=== PATIENT | female | born 1985 | race Native Hawaiian/Other Pacific Islander ===

== ENCOUNTER 2016-05-05 11:58 | Emergency (ER) | payer SELFPAY ==
[~2016-05-05] VITALS: Ht 152.4 cm; Wt 73.0 kg
[~2016-05-05 11:58] MED LIST: TAB-TAB PO
[2016-05-05 12:08] VITALS: BP 107/68; PULSE 72; RESP 16; TEMP 98.7; O2SAT 97
[2016-05-05 12:25] VITALS: RESP 16; O2SAT 99
[2016-05-05] MEDS ORDERED: FAMOTIDINE 20 MG/2 ML VIAL IV PUSH ONE (12:30)
[2016-05-05] MEDS ORDERED: ALUMINUM/MAGNESIUM/SIMETH 30 ML CUP PO ONE (12:30)
[2016-05-05] MEDS ORDERED: ONDANSETRON HCL 4 MG/2 ML VIAL IVP ONE (12:30)
[2016-05-05] MEDS ORDERED: SODIUM CHLORIDE 0.9% FLUSH 5 ML FLUSH IVF PRN (12:30)
[2016-05-05] MEDS ORDERED: LIDOCAINE VISCOUS 2% SOLN 15 ML UDC PO ONE (12:30)
--- NOTE | 2016-05-05 12:33 | PD ---
HPI Chief Complaint: Abdominal Pain Time Seen by Provider: 12:27 Travel History International Travel<30 days: No Contact w/Intl Traveler<30days: No Traveled to known affect area: No History of Present Illness HPI Patient presents for complaints of left upper quadrant abdominal pain for 3 days. Reports some nausea without vomiting. Denies any acid brash. States she was here 3 weeks ago with similar symptoms but I'm unable to find his records. States that it mildly improves with a bowel movement. Denies heartburn. Eating and drinking normally. Reports normal urination and bowels. Denies any chest pain shortness of breath. Denies excessive alcohol intake. PFSH Past Medical History Diminished Hearing: No Influenza Vaccination: Yes ?: Not LMP: 05/04/2016 : 2 Para: 2 Past Surgical History Surgical History: No Previous Surgery Social History Alcohol Use: No Tobacco Use: No Substance Use: No Allergies-Medications (Allergen,Severity, Reaction): Coded Allergies: No Known Allergies (Unverified , 05/05/16) Reported Meds & Prescriptions Reported Meds & Active Scripts Active Zantac (Ranitidine HCl) 150 Mg Tab 150 Mg PO BID DAILY Protonix (Pantoprazole Sodium) 40 Mg Tab 40 Mg PO BIDX2 WKS THEN DAILY Review of Systems General / Constitutional: No: Fever Eyes: No: Visual changes HENT: No: Headaches Cardiovascular: No: Chest Pain or Discomfort Respiratory: No: Shortness of Breath Gastrointestinal: Positive: Abdominal Pain Genitourinary: No: Dysuria Musculoskeletal: No: Pain Skin: No Rash Neurologic: No: Weakness Psychiatric: No: Depression Endocrine: No: Polydipsia Hematologic/Lymphatic: No: Easy Bruising Physical Exam Narrative GENERAL: Well-nourished, well-developed patient. SKIN: Warm and dry. HEAD: Normocephalic. EYES: No scleral icterus. No injection or drainage. NECK: Supple, trachea midline. No JVD or lymphadenopathy. CARDIOVASCULAR: Regular rate and rhythm without murmurs, gallops, or rubs. RESPIRATORY: Breath sounds equal bilaterally. No accessory muscle use. GASTROINTESTINAL: Abdomen soft, tender to palpation left upper quadrant, nondistended. MUSCULOSKELETAL: No cyanosis, or edema. BACK: Nontender without obvious deformity. No CVA tenderness. Data Data Last Documented VS Vital Signs Date Time Temp Pulse Resp B/P Pulse Ox O2 Delivery O2 Flow Rate FiO2 05/05/16 12:08 98.7 72 16 107/68 97 Orders Complete Blood Count With Diff (05/05/16 12:28) Comprehensive Metabolic Panel (05/05/16 12:28) Lipase (05/05/16 12:28) Iv Access Insert/Monitor (05/05/16 12:28) Ecg Monitoring (05/05/16 12:28) Oximetry (05/05/16 12:28) Ondansetron Inj (Zofran Inj) (05/05/16 12:30) Sodium Chloride 0.9% Flush (Ns Flush) (05/05/16 12:30) Famotidine Inj (Pepcid Inj) (05/05/16 12:30) Al-Mag Hy-Si 40-40-4 Mg/Ml Liq (Mag-Al P (05/05/16 12:30) Lidocaine 2% Viscous (Xylocaine 2% Visco (05/05/16 12:30) Ed Urine Pregnancytest Poc (05/05/16 12:28) Labs Laboratory Tests Test 05/05/16 12:35 White Blood Count 3.4 TH/MM3 Red Blood Count 4.30 MIL/MM3 Hemoglobin 13.2 GM/DL Hematocrit 38.4 % Mean Corpuscular Volume 89.4 FL Mean Corpuscular Hemoglobin 30.7 PG Mean Corpuscular Hemoglobin 34.4 % Concent Red Cell Distribution Width 11.3 % Platelet Count 187 TH/MM3 Mean Platelet Volume 7.8 FL Neutrophils (%) (Auto) 52.2 % Lymphocytes (%) (Auto) 35.1 % Monocytes (%) (Auto) 7.8 % Eosinophils (%) (Auto) 4.5 % Basophils (%) (Auto) 0.4 % Neutrophils # (Auto) 1.7 TH/MM3 Lymphocytes # (Auto) 1.2 TH/MM3 Monocytes # (Auto) 0.3 TH/MM3 Eosinophils # (Auto) 0.2 TH/MM3 Basophils # (Auto) 0.0 TH/MM3 CBC Comment DIFF FINAL Differential Comment Sodium Level 143 MEQ/L Potassium Level 3.9 MEQ/L Chloride Level 107 MEQ/L Carbon Dioxide Level 27.1 MEQ/L Anion Gap 9 MEQ/L Blood Urea Nitrogen 9 MG/DL Creatinine 0.63 MG/DL Estimat Glomerular Filtration 111 ML/MIN Rate Random Glucose 95 MG/DL Calcium Level 8.3 MG/DL Total Bilirubin 0.5 MG/DL Aspartate Amino Transf 8 U/L (AST/SGOT) Alanine Aminotransferase 14 U/L (ALT/SGPT) Alkaline Phosphatase 53 U/L Total Protein 7.3 GM/DL Albumin 3.7 GM/DL Lipase 114 U/L [facility] Medical Decision Making Medical Screen Exam Complete: Yes Emergency Medical Condition: Yes Differential Diagnosis Gastric ulcer, duodenal ulcer, gastritis, pancreatitis Narrative Course Assessment and plan discussed with patient at bedside. labs reviewed. Resolution of symptoms with GI cocktail. Diagnosis Primary Impression: Gastritis Qualified Code: K29.00 - Acute gastritis, presence of bleeding unspecified, unspecified gastritis type Patient Instructions: General Instructions Additional Instructions: Encouraged a high fiber heart healthy diet, encouraged to avoid aggravating factors of reflux including but not limited to ETOH, tobacco, late and large meals, spicy meals and weight. Follow up with PCP. Med/Other Pt SpecificInfo: Prescription(s) given Scripts Ranitidine (Zantac)150 Mg [id number] Mg PO BID daily #30 TAB Ref 0 Prov:Jimenez Delgado MD 05/05/16 Pantoprazole (Protonix)40 Mg Tab40 Mg PO BIDx2 wks then daily #45 TAB Ref 0 Prov:Jimenez Delgado MD 05/05/16 Disposition: 01 DISCHARGE HOME Condition: Good Jimenez Delgado MD May 05, 2016 12:33
[2016-05-05 12:44] LABS: AUTOMATED NEUTROPHIL # 1.7 TH/MM3 (1.8-7.7); BASOPHIL % 0.4 % (0.0-2.0); EOSINOPHIL # 0.2 TH/MM3 (0-0.4); EOSINOPHIL % 4.5 % (0.0-4.0); HEMATOCRIT 38.4 % (35.0-46.0); HEMO FLAGS DIFF FINAL; LYMPH % 35.1 % (9.0-44.0); LYMPHOCYTE # 1.2 TH/MM3 (1.0-4.8); MEAN CELL VOLUME 89.4 FL (80.0-100.0); MEAN CORPUSCULAR HEMOGLOBIN 30.7 PG (27.0-34.0); MEAN CORPUSCULAR HGB CONC 34.4 % (32.0-36.0); MONO % 7.8 % (0.0-8.0); NEUT % 52.2 % (16.0-70.0); PLATELET COUNT 187 TH/MM3 (150-450); RED CELL DISTRIBUTION WIDTH 11.3 % (11.6-17.2); WHITE BLOOD COUNT 3.4 TH/MM3 (4.0-11.0)
[2016-05-05 12:51] LABS: CHLORIDE 107 MEQ/L (98-107); POTASSIUM 3.9 MEQ/L (3.5-5.1); SODIUM (NA) 143 MEQ/L (136-145)
[2016-05-05 12:56] LABS: ANION GAP 9 MEQ/L (5-15); BICARBONATE 27.1 MEQ/L (21.0-32.0)
[2016-05-05 12:57] LABS: BLOOD UREA NITROGEN 9 MG/DL (7-18)
[2016-05-05 12:59] LABS: ALT (GPT) 14 U/L (10-53); AST (GOT) 8 U/L (15-37); GLOMERULAR FILTRATION RATE 111 ML/MIN (>89)
[2016-05-05 13:01] LABS: TOTAL BILIRUBIN ADULT 0.5 MG/DL (0.2-1.0)
[2016-05-05 13:02] LABS: ALKALINE PHOSPHATASE 53 U/L (45-117)
[2016-05-05] MEDS ORDERED: PROT40TA PO (13:55)
[2016-05-05] MEDS ORDERED: ZANT150T2 PO (13:55)
[2016-05-05 14:05] VITALS: BP 110/78; PULSE 82; RESP 16; O2SAT 98
== END 2016-05-05 14:15 | disposition home or self-care (01) ==
LOC: PHED 11:58
DX: K29.00 Acute gastritis without bleeding (principal); R11.0 Nausea
CPT/HCPCS: 80053; 83690; 84703; 85025; 96374; 96375; 99284; J2405

== ENCOUNTER 2016-05-14 20:57 | Emergency (ER) | payer SELFPAY ==
[~2016-05-14 20:57] MED LIST changes: +PROT40TA PO; -TAB-TAB PO; +ZANT150T2 PO
[2016-05-14 20:59] VITALS: BP 121/80; PULSE 73; RESP 16; TEMP 98; O2SAT 99
[2016-05-14 23:22] VITALS: BP 134/92; PULSE 86; RESP 17; O2SAT 100
[2016-05-14] MEDS ORDERED: SODIUM CHLOR 0.9% 1000 ML INJ 1,000 ML IV SCH (23:32)
[2016-05-14] MEDS ORDERED: SODIUM CHLORIDE 0.9% FLUSH 5 ML FLUSH IVF PRN (23:45)
[2016-05-14 23:55] LABS: AUTOMATED NEUTROPHIL # 3.1 TH/MM3 (1.8-7.7); BASOPHIL % 0.1 % (0.0-2.0); EOSINOPHIL # 0.1 TH/MM3 (0-0.4); EOSINOPHIL % 2.4 % (0.0-4.0); HEMATOCRIT 39.7 % (35.0-46.0); HEMO FLAGS DIFF FINAL; LYMPH % 38.3 % (9.0-44.0); LYMPHOCYTE # 2.3 TH/MM3 (1.0-4.8); MEAN CELL VOLUME 87.7 FL (80.0-100.0); MEAN CORPUSCULAR HEMOGLOBIN 30.6 PG (27.0-34.0); MEAN CORPUSCULAR HGB CONC 34.8 % (32.0-36.0); MONO % 5.8 % (0.0-8.0); NEUT % 53.4 % (16.0-70.0); PLATELET COUNT 219 TH/MM3 (150-450); RED BLOOD COUNT 4.52 MIL/MM3 (4.00-5.30); RED CELL DISTRIBUTION WIDTH 11.8 % (11.6-17.2); WHITE BLOOD COUNT 5.9 TH/MM3 (4.0-11.0)
[2016-05-14 23:59] LABS: BLOOD, URINE TRACE (NEG); COMMENT (UR) CULT NOT INDICATED; CULTURE IF INDICATED CULT NOT INDICATED; GLUCOSE,URINE NEG (NEG); KETONE, URINE 80 mg/dL (NEG); MUCUS URINE FEW /lpf (OCC); NITRITE,URINE NEG (NEG); PH, URINE 5.5 (5.0-8.5); RENAL EPITHELIAL CELLS <1 /hpf; SQUAMOUS EPITHELIAL CELL URINE 4 /hpf (0-5); URINE COLOR YELLOW (YELLW/STRAW)
[2016-05-15 00:09] LABS: ALT (GPT) 16 U/L (10-53); ANION GAP 7 MEQ/L (5-15); AST (GOT) 10 U/L (15-37); BICARBONATE 27.7 MEQ/L (21.0-32.0); BLOOD UREA NITROGEN 8 MG/DL (7-18); CHLORIDE 105 MEQ/L (98-107); GLOMERULAR FILTRATION RATE 103 ML/MIN (>89); POTASSIUM 3.4 MEQ/L (3.5-5.1); SODIUM (NA) 140 MEQ/L (136-145)
[2016-05-15 00:11] LABS: ALKALINE PHOSPHATASE 57 U/L (45-117); TOTAL BILIRUBIN ADULT 0.5 MG/DL (0.2-1.0)
--- NOTE | 2016-05-15 00:25 | PD ---
HPI Chief Complaint: Abdominal Pain Time Seen by Provider: 23:22 Travel History International Travel<30 days: No Contact w/Intl Traveler<30days: No Traveled to known affect area: No History of Present Illness HPI Patient is a 31-year-old female presents to the emergency department for left upper quadrant pain. Patient states she was seen in the [place] emergency department for epigastric pain a few days ago. She was put on protonix and has been taking this medicine. Patient states she is now having pain in the left upper quadrant associated with some mild nausea but no dysuria no vaginal bleeding or vaginal discharge. No chest pain or shortness of breath. Patient is unsure what is what brought her into the emergency department. She states fairly mild now. Denies possibility of . Workup 3 days ago included a CBC and BMP both of which were within normal limits. [facility] Past Medical History Medical History: Denies Significant Hx Diminished Hearing: No ?: Not LMP: LAST WEEK : 2 Para: 2 Past Surgical History Surgical History: No Previous Surgery Social History Alcohol Use: No Tobacco Use: No Substance Use: No Allergies-Medications (Allergen,Severity, Reaction): Coded Allergies: No Known Allergies (Unverified , 05/14/16) Reported Meds & Prescriptions Reported Meds & Active Scripts Active Zantac (Ranitidine HCl) 150 Mg Tab 150 Mg PO BID DAILY Protonix (Pantoprazole Sodium) 40 Mg Tab 40 Mg PO BIDX2 WKS THEN DAILY Review of Systems Except as stated in HPI: all other systems reviewed are Neg Physical Exam Narrative GENERAL: Well-developed well-nourished no apparent distress SKIN: Warm and dry. HEAD: Atraumatic. Normocephalic. EYES: Pupils equal and round. No scleral icterus. No injection or drainage. ENT: No nasal bleeding or discharge. Mucous membranes pink and moist. NECK: Trachea midline. No JVD. CARDIOVASCULAR: Regular rate and rhythm. No murmur appreciated. RESPIRATORY: No accessory muscle use. Clear to auscultation. Breath sounds equal bilaterally. GASTROINTESTINAL: Abdomen soft, non-tender, nondistended. Hepatic and splenic margins not palpable. Patient points to just anterior to left axillary line and left upper quadrant. There is absolutely no tenderness at the spot nor the remainder of her abdomen. MUSCULOSKELETAL: No obvious deformities. No clubbing. No cyanosis. No edema. NEUROLOGICAL: Awake and alert. No obvious cranial nerve deficits. Motor grossly within normal limits. Normal speech. PSYCHIATRIC: Appropriate mood and affect; insight and judgment normal. Data Data Last Documented VS Vital Signs Date Time Temp Pulse Resp B/P Pulse Ox O2 Delivery O2 Flow Rate FiO2 05/15/16 00:30 98 Room Air 05/14/16 23:22 86 17 134/92 05/14/16 20:59 98.0 Orders Complete Blood Count With Diff (05/14/16 23:32) Comprehensive Metabolic Panel (05/14/16 23:32) Urinalysis - C+S If Indicated (05/14/16 23:32) Iv Access Insert/Monitor (05/14/16 23:32) Ecg Monitoring (05/14/16 23:32) Oximetry (05/14/16 23:32) Sodium Chlor 0.9% 1000 Ml Inj (Ns 1000 M (05/14/16 23:32) Sodium Chloride 0.9% Flush (Ns Flush) (05/14/16 23:45) Ed Urine Pregnancytest Poc (05/14/16 23:32) Ed Urine Pregnancytest Poc (05/15/16 00:26) Ketorolac Inj (Toradol Inj) (05/15/16 00:30) Labs Laboratory Tests Test 05/14/16 23:25 White Blood Count 5.9 TH/MM3 Red Blood Count 4.52 MIL/MM3 Hemoglobin 13.8 GM/DL Hematocrit 39.7 % Mean Corpuscular Volume 87.7 FL Mean Corpuscular Hemoglobin 30.6 PG Mean Corpuscular Hemoglobin 34.8 % Concent Red Cell Distribution Width 11.8 % Platelet Count 219 TH/MM3 Mean Platelet Volume 8.5 FL Neutrophils (%) (Auto) 53.4 % Lymphocytes (%) (Auto) 38.3 % Monocytes (%) (Auto) 5.8 % Eosinophils (%) (Auto) 2.4 % Basophils (%) (Auto) 0.1 % Neutrophils # (Auto) 3.1 TH/MM3 Lymphocytes # (Auto) 2.3 TH/MM3 Monocytes # (Auto) 0.3 TH/MM3 Eosinophils # (Auto) 0.1 TH/MM3 Basophils # (Auto) 0.0 TH/MM3 CBC Comment DIFF FINAL Differential Comment Urine Color YELLOW Urine Turbidity CLEAR Urine pH 5.5 Urine Specific [place] 1.030 Urine Protein TRACE mg/dL Urine Glucose (UA) NEG mg/dL Urine Ketones 80 mg/dL Urine Occult Blood TRACE Urine Nitrite NEG Urine Bilirubin NEG Urine Urobilinogen LESS THAN 2.0 MG/DL Urine Leukocyte Esterase TRACE Urine RBC 2 /hpf Urine WBC 1 /hpf Urine Squamous Epithelial 4 /hpf Cells Urine Renal Epithelial Cells <1 /hpf Urine Mucus FEW /lpf Microscopic Urinalysis Comment CULT NOT INDICATED Sodium Level 140 MEQ/L Potassium Level 3.4 MEQ/L Chloride Level 105 MEQ/L Carbon Dioxide Level 27.7 MEQ/L Anion Gap 7 MEQ/L Blood Urea Nitrogen 8 MG/DL Creatinine 0.67 MG/DL Estimat Glomerular Filtration 103 ML/MIN Rate Random Glucose 84 MG/DL Calcium Level 8.5 MG/DL Total Bilirubin 0.5 MG/DL Aspartate Amino Transf 10 U/L (AST/SGOT) Alanine Aminotransferase 16 U/L (ALT/SGPT) Alkaline Phosphatase 57 U/L Total Protein 7.8 GM/DL Albumin 4.2 GM/DL MDM Medical Decision Making Medical Screen Exam Complete: Yes Emergency Medical Condition: Yes Differential Diagnosis Pancreatitis unlikely, cholecystitis unlikely, acute abdomen extremely unlikely. Narrative Course Patient roomed in ER. Toradol given for pain. patient appears well, benign abdomen. Labs reassuring, negative. Patient has no PCP to follow up with. After length discussion with patient she is worried that she has abdominal ca. when asked why she states that a friend at [facility] was diagnosed recently. Patient has no family history of abdominal cancer, non-smoker and no weight loss nor blood in the stool. Discussed with patient no definative cause of abdominal pain identified and I doubt though cannot completely exclude malignancy.discussed with her that could consider CT but this may increase her lifetime risk of CA. after lengthy discussion of R/B/C/A of CT and of missing CA , she elects to defer CT. DIscussed need for follow up with a pcp and return to ED criteria. She is stable for discharge. NO definative cause of abdominal pain identiied. Diagnosis Primary Impression: Abdominal pain Qualified Code: R10.12 - Left upper quadrant pain Disposition: DISCHARGE HOME Condition: Stable Hudson Tanner MD May 15, 2016 00:25
[2016-05-15 00:30] VITALS: O2SAT 98
[2016-05-15] MEDS ORDERED: KETOROLAC TROMETHAMINE 30 MG/ML (IVP) VIAL IV PUSH ONE (00:30)
== END 2016-05-15 01:05 | disposition home or self-care (01) ==
LOC: NEPA 20:57
DX: R10.12 Left upper quadrant pain (principal); R11.0 Nausea
CPT/HCPCS: 80053; 81001; 84703; 85025; 96361; 96374; 99284; J1885; J7030

== ENCOUNTER 2016-12-08 23:29 | Emergency (ER) | payer SELFPAY ==
[~2016-12-08] VITALS: Ht 157.5 cm; Wt 74.1 kg
[2016-12-08 23:36] VITALS: BP 134/74; PULSE 79; RESP 18; TEMP 98.1; O2SAT 99
[2016-12-09] MEDS ORDERED: AMOX500C PO (01:41)
--- NOTE | 2016-12-09 01:41 | PD ---
HPI Chief Complaint: ENT Complaint Time Seen by Provider: 01:29 Travel History International Travel<30 days: No Contact w/Intl Traveler<30days: No Traveled to known affect area: No History of Present Illness HPI The patient is a 31-year-old female that complains of a sensation in her throat , and her tonsils that have been swollen for about one month. She denies any fever, dental pain, TMJ pain or airway obstruction. She uses a loop for control and does not take control pills. PFSH Past Medical History Diminished Hearing: No GERD: Yes Tetanus Vaccination: < 5 Years Influenza Vaccination: Yes ?: Not LMP: 11-23-16 : 2 Para: 2 Past Surgical History Surgical History: No Previous Surgery Social History Alcohol Use: No Tobacco Use: No Substance Use: No Allergies-Medications (Allergen,Severity, Reaction): Coded Allergies: No Known Allergies (Unverified , 12/09/16) Reported Meds & Prescriptions Reported Meds & Active Scripts Active Amoxicillin 500 Mg Cap 500 Mg PO TID 10 Days Review of Systems Except as stated in HPI: all other systems reviewed are Neg Physical Exam Narrative GENERAL: Well-nourished, anxious, well-developed patient in no apparent distress except for her throat sensation. Her vital signs are normal. SKIN: Focused skin assessment warm/dry. HEAD: Normocephalic. EYES: No scleral icterus. No injection or drainage. NECK: Supple, trachea midline. No JVD or lymphadenopathy. CARDIOVASCULAR: Regular rate and rhythm without murmurs, gallops, or rubs. RESPIRATORY: Breath sounds equal bilaterally. No accessory muscle use. GASTROINTESTINAL: Abdomen soft, non-tender, nondistended. MUSCULOSKELETAL: No cyanosis, or edema. BACK: Nontender without obvious deformity. No CVA tenderness. ENT: The tympanic membranes are clear and the throat is clear. Specifically no erythema of the throat, exudate nor peritonsillar abscess is noted. The patient 's sensation is reproduced by pressing on the tonsils but there is no tonsil enlargement or masses. There is no TMJ tenderness. DENTAL: No loose or chipped teeth. No malocclusion. There is no tenderness of any of the teeth and no drainable abscesses are present. The teeth appear in excellent shape. Data Data Last Documented VS Vital Signs Date Time Temp Pulse Resp B/P (MAP) Pulse Ox O2 Delivery O2 Flow Rate FiO2 9/16/17 23:36 98.1 79 18 134/74 (94) 99 MDM Medical Decision Making Medical Screen Exam Complete: Yes Emergency Medical Condition: Yes Medical Record Reviewed: Yes Differential Diagnosis Peritonsillar abscesses, tonsillar masses-unlikely, conversion reaction, dental pain, TMJ pain Narrative Course The patient has oral discomfort etiology undetermined. We will try amoxicillin for 10 days, 500 mg 3 times daily. If this does not work she should see her primary care physician or an oral surgeon. This may be a conversion reaction. Diagnosis Primary Impression: Oral pain of unknown etiology Additional Instructions: As we discussed, a higher level of expertise would be an oral surgeon. If this antibiotic course does not work, you should talk this over with Dr. Torres. Med/Other Pt SpecificInfo: Prescription(s) given Scripts Amoxicillin (Amoxicillin) 500 Mg Cap 500 MG PO TID for Infection for 10 Days, CAP 0 Refills Prov: Hector Gamez MD 12/09/16 Disposition: 01 DISCHARGE HOME Condition: Stable Hector Gamez MD Dec 09, 2016 01:41
[2016-12-09] MEDS ORDERED: AMOXICILLIN 875 MG TAB PO ONE (01:45)
== END 2016-12-09 01:58 | disposition home or self-care (01) ==
LOC: PHED 23:29
DX: K13.79 Other lesions of oral mucosa (principal)
CPT/HCPCS: 99283

== ENCOUNTER 2017-08-08 00:03 | Emergency (ER) | payer MEDICAID ==
[~2017-08-08 00:03] MED LIST changes: +AMOX500C PO; -PROT40TA PO; -ZANT150T2 PO
[2017-08-08 00:08] VITALS: BP 123/73; PULSE 71; RESP 18; TEMP 97.7; O2SAT 99
--- NOTE | 2017-08-08 00:23 | PD ---
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 The patient notes a four-day history a vaginal discharge which was white initially, now is creamy in color. She also complains of dark-colored urine that is yellow and occasionally green per her report. She does complain of dysuria without any frequency or urgency. The patient has been using Monistat, think it was a yeast infection, however, the Monistat appears to have made her symptoms worse. She also complains of dyspareunia with her . She states she only has one sexual partner symptoms are moderate. The patient currently has an IUD in place for control. PFSH Past Medical History Diminished Hearing: No GERD: Yes : 2 Para: 2 Past Surgical History Surgical History: No Previous Surgery Social History Alcohol Use: No Tobacco Use: No Substance Use: No Allergies-Medications (Allergen,Severity, Reaction): Coded Allergies: No Known Allergies (Verified Adverse Reaction, Unknown, 08/08/17) Reported Meds & Prescriptions Reported Meds & Active Scripts Active Diflucan (Fluconazole) 150 Mg Tab 150 Mg PO ONCE Amoxicillin 500 Mg Cap 500 Mg PO TID 10 Days Review of Systems Except as stated in HPI: all other systems reviewed are Neg General / Constitutional: No: Fever, Chills Gastrointestinal: No: Nausea, Vomiting, Diarrhea, Abdominal Pain Genitourinary: Positive: Dysuria, Pelvic Pain, Discharge Skin: Positive Itching, No Rash Physical Exam Narrative GENERAL: Awake, alert, very pleasant 32-year-old female who appears her stated age and is in no acute respiratory distress. SKIN: Focused skin assessment warm/dry. HEAD: Atraumatic. Normocephalic. EYES: No injection or drainage. GASTROINTESTINAL: Abdomen soft, mild left lower quadrant tenderness. Negative Gutierrez's. Negative McBurney's. No suprapubic tenderness. Back: No CVA tenderness. Genitourinary: The exam was performed in the presence of a female nurse. External examination reveals no rashes or lesions. However, the introitus was erythematous. Speculum examination was attempted, unable to visualize the entire cervix secondary to patient discomfort. The vaginal wall did appear slightly erythematous, there was some white discharge in the inferior aspect of the vaginal vault with some clumpy vaginal discharge on the right lateral wall. I was unable to visualize the cervical loss or IUD. MUSCULOSKELETAL: No obvious deformities. No clubbing. No cyanosis. No edema. NEUROLOGICAL: Awake and alert. No obvious cranial nerve deficits. Motor grossly within normal limits. Normal speech. PSYCHIATRIC: Appropriate mood and affect; insight and judgment normal. Data Data Last Documented VS Vital Signs Date Time Temp Pulse Resp B/P (MAP) Pulse Ox O2 Delivery O2 Flow Rate FiO2 08/08/17 00:08 97.7 71 18 123/73 (90) 99 Orders Orders Gc And Chlamydia Pcr (08/08/17 00:18) Wet Prep Profile (08/08/17 00:18) Urinalysis - C+S If Indicated (08/08/17 00:18) Ed Urine Pregnancytest Poc (08/08/17 00:18) Fluconazole (Diflucan) (08/08/17 00:45) Urine Culture (08/08/17 00:25) Labs Laboratory Tests Test 08/08/17 00:25 Urine Color YELLOW Urine Turbidity CLOUDY Urine pH 7.5 Urine Specific [place] 1.015 Urine Protein TRACE mg/dL Urine Glucose (UA) NEG mg/dL Urine Ketones TRACE mg/dL Urine Occult Blood NEG Urine Nitrite NEG Urine Bilirubin NEG Urine Urobilinogen 0.2 MG/DL Urine Leukocyte Esterase LARGE Urine RBC 0-3 /hpf Urine WBC 25-49 /hpf Urine Squamous Epithelial Cells > 8 /hpf Urine Bacteria MOD /hpf Microscopic Urinalysis Comment CULTURE INDICATED Clue Cells (Wet Prep) NONE SEEN Vaginal Trichomonas (Wet Prep) NONE SEEN Vaginal Yeast (Wet Prep) PRESENT MDM Medical Decision Making Medical Screen Exam Complete: Yes Emergency Medical Condition: Yes Medical Record Reviewed: Yes Interpretation(s) Laboratory Tests Test 08/08/17 00:25 Urine Color YELLOW Urine Turbidity CLOUDY Urine pH 7.5 Urine Specific [place] 1.015 Urine Protein TRACE mg/dL Urine Glucose (UA) NEG mg/dL Urine Ketones TRACE mg/dL Urine Occult Blood NEG Urine Nitrite NEG Urine Bilirubin NEG Urine Urobilinogen 0.2 MG/DL Urine Leukocyte Esterase LARGE Urine RBC 0-3 /hpf Urine WBC 25-49 /hpf Urine Squamous Epithelial Cells > 8 /hpf Urine Bacteria MOD /hpf Microscopic Urinalysis Comment CULTURE INDICATED Clue Cells (Wet Prep) NONE SEEN Vaginal Trichomonas (Wet Prep) NONE SEEN Vaginal Yeast (Wet Prep) PRESENT Differential Diagnosis Differential diagnosis includes bacterial vaginosis, trichomonas, gonorrhea, chlamydia, vaginitis, cervicitis, UTI, herpes, yeast infection. Narrative Course A UA was sent to lab and bedside UA test was obtained, was negative. A pelvic exam was completed in the presence of a female nurse. Gonorrhea/ chlamydia PCR and wet prep were sent to lab. The patient's wet prep is positive for yeast, the patient does have severe vaginitis, severe pain and dyspareunia per her report, speculum examination was difficult secondary to pain. She has already tried [id number] Monistat with no improvement of her symptoms. Therefore, she will be treated for severe yeast infection with Diflucan now and then Diflucan after her course of antibiotics for her UTI. Diagnosis Primary Impression: Yeast vaginitis Additional Impression: UTI (urinary tract infection) Qualified Codes: N30.00 - Acute cystitis without hematuria Patient Instructions: General Instructions Additional Instructions: Medications as directed. No vaginal intercourse for 1 week. 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 Avoid applying any [id number] creams or lotions or douche to the vagina. Med/Other Pt SpecificInfo: Prescription(s) given Scripts Sulfamethoxazole-Trimethoprim (Bactrim DS) 800-160 Mg Tab 1 TAB PO BID for Infection, #14 TAB 0 Refills Prov: Kostas Nunes MD 08/08/17 Fluconazole (Diflucan) 150 Mg Tab 150 MG PO ONCE for Infection, #1 TAB 0 Refills Prov: Kostas Nunes MD 08/08/17 Disposition: DISCHARGE HOME Condition: Stable Kostas Nunes MD August 08, 2017 00:23
[2017-08-08 00:39] LABS: BILIRUBIN, URINE NEG (NEG); BLOOD, URINE NEG (NEG); GLUCOSE,URINE NEG (NEG); KETONE, URINE TRACE mg/dL (NEG); NITRITE,URINE NEG (NEG); PH, URINE 7.5 (5.0-8.5); URINE COLOR YELLOW (YELLW/STRAW); URINE LEUKOCYTE ESTERASE LARGE (NEG)
[2017-08-08] MEDS ORDERED: DIFL150T PO (00:44)
[2017-08-08 00:45] LABS: BACTERIA, URINE MOD /hpf; RBC, URINE 0-3 /hpf (0-3); SQUAMOUS EPITHELIAL CELL URINE > 8 /hpf (0-5)
[2017-08-08] MEDS ORDERED: FLUCONAZOLE 100 MG TAB PO ONE (00:45)
[2017-08-08] MEDS ORDERED: BACT800T5 PO (00:49)
[2017-08-08 00:59] VITALS: BP 117/74
== END 2017-08-08 01:11 | disposition home or self-care (01) ==
LOC: PHED 00:03
DX: B37.3 Candidiasis of vulva and vagina (principal); N30.00 Acute cystitis without hematuria; B95.61 Methicillin susceptible Staphylococcus aureus infection as the cause of diseases classified elsewhere; B96.89 Other specified bacterial agents as the cause of diseases classified elsewhere; K21.9 Gastro-esophageal reflux disease without esophagitis
CPT/HCPCS: 81001; 84703; 87077; 87086; 87186; 87210; 87491; 87591; 99283